=== PATIENT | female | born 1965 | race Caucasian/White ===

== ENCOUNTER 2017-10-24 10:55 | Outpatient (CLI) | payer OTHER ==
--- NOTE | 2017-10-24 12:31 | RAD ---
THREE VIEWS LEFT FOOT: Date: 10-24-17 History: Injured left foot six weeks ago with fracture. Open and nondisplaced fracture fifth metatars al. FINDINGS: There is a fracture involving the proximal aspect of the left fifth metatarsal. The fracture lucency persists and no significant callus formation is present. There is no displacement or angulation of th e fracture. No additional fracture is seen. There is no evidence of a dislocation. Lisfranc joint is normally aligned. Plantar calcaneal enthesophyte is seen. IMPRESSION: 1. Fracture of the proximal left fifth metatarsal. No significant callus formation is seen about the fracture to suggest significant interval healing. 2. No additional fracture or dislocation is seen involving the left foot. POS: [facility]
== END 2017-10-24 10:56 | disposition home or self-care (01) ==
LOC: SCSRAD 10:55
PROVIDERS: ATTEND Family Medicine
DX: S92.355D Nondisplaced fracture of fifth metatarsal bone, left foot, subsequent encounter for fracture with routine healing (principal)

== ENCOUNTER → 2018-01-17 | Day surgery (SDC) | payer OTHER ==
[2018-01-16 12:57] VITALS: BMI 34.4
[~2018-01-17] MED LIST: Bupivacaine PF 0.5% 30 ML VIAL ONE; Clindamycin/D5W 600 mg/50 ml Premix Bag ONE; Fentanyl 100 MCG/2 ML VIAL ONE; HYDROcodone/Acetaminophen 5/325 mg Tablet ONE; Midazolam HCl 2 mg/2 ml Vial ONE
[2018-01-17 07:24] LABS: Anion Gap 16 mmol/L (10-20); BUN (Urea Nitrogen) 20 mg/dL (7.0-18.7); Calc. Creatinine Clearance 118 mL/min (70-130); Calcium 10.3 mg/dL (7.8-10.44); Carbon Dioxide 28 mmol/L (22-29); Chloride 101 mmol/L (98-107); Estimated GFR-MDRD 74; Glucose 126 mg/dL (70-105); Sodium 141 mmol/L (136-145)
--- NOTE | 2018-01-17 11:27 | RAD ---
THREE INTRAOPERATIVE FLUOROSCOPIC IMAGES LEFT FOOT: Date: 01-17-18 History: Reduction of foot, fifth metatarsal screw fixation. Comparison: 10-24-17 FINDINGS: There is a single long screw transfixing the fracture involving the proximal left fifth metatarsal. N o hardware complication is seen. IMPRESSION: Internal fixation proximal left fifth metatarsal fracture. POS: [facility]
--- NOTE | 2018-01-17 11:34 | OP ---
DATE OF OPERATION: 01/17/2018 PREOPERATIVE DIAGNOSIS: Left fifth metatarsal fracture nonunion, Downs fracture. POSTOPERATIVE DIAGNOSIS: Left fifth metatarsal fracture nonunion, Downs fracture. OPERATION: Left fifth metatarsal bone grafting and screw fixation for nonunion. SURGEON: Mc Gale M.D. ANESTHESIA: General plus local. IMPLANTS: A single 4.5 mm malleolar screw from [employer] was used. ANESTHESIA: General. INDICATIONS: Ms. 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 She has failed conservative treatment. She has now been indicated for screw fixation to re store stability and compressed the fracture. I have also discussed bone grafting from her calcaneus to provide new biology to stimulate healing. She wants to proceed with the operation. She is aware of risks and benefits. DESCRIPTION OF PROCEDURE: Ms. Deluca was identified in the preoperative holding area. Her corre ct extremity was marked. She was carried to the operating room. She was positioned supine. General anesthesia was induced. A multidisciplinary timeout was performed. The left lower extremity was pr epped and draped in sterile fashion. She was given intravenous antibiotics. We began the procedure by harvesting calcaneal bone graft. We made an incision over the lateral calc aneus. We dissected down through the subcutaneous tissues to the bony cortex. We used a drill to en ter the cortex. We then used a curet to remove approximately 3 mL of cancellous bone. This was save d in a specimen cup. We thoroughly irrigated this wound and closed with a 2-0 Vicryl suture and nylo n. At this point, we moved to the fracture at the fifth metatarsal. We made a small incision directly o rosy the fracture site. We dissected down through the subcutaneous tissues again exposing the bony fisher rface. We entered the nonunion and fracture site. We used an osteotome to shingle the edges and sti mulate the adjacent bone to the nonunion. We cleared any fibrous tissue. At this point, we packed t he nonunion with cancellous bone from the calcaneus. Finally, we made a small incision proximal to the fifth metatarsal. We inserted a guidewire into the metatarsal using intraoperative x-ray to guide this in appropriate position. We then overdrilled th e guidewire. Finally, we placed a solid 4.5 malleolar screw in the intramedullary canal of the fifth metatarsal. This traversed the fracture site and allowed compression. Again, we took images and sa jania these. We thoroughly irrigated and closed all wounds. A sterile dressing was applied to the pat ient.
== END ==
LOC: SDC 06:03
PROVIDERS: ATTEND Orthopaedic Surgery
PROC: 0QUP07Z Supplement Left Metatarsal with Autologous Tissue Substitute, Open Approach (ICD-10-PCS; principal; 2018-01-17)
PROC: 0QBM0ZZ Excision of Left Tarsal, Open Approach (ICD-10-PCS; principal; 2018-01-17)
PROC: 0QSP04Z Reposition Left Metatarsal with Internal Fixation Device, Open Approach (ICD-10-PCS; principal; 2018-01-17)
DX: S92.352K Displaced fracture of fifth metatarsal bone, left foot, subsequent encounter for fracture with nonunion (principal); Z88.0 Allergy status to penicillin; Z79.84 Long term (current) use of oral hypoglycemic drugs; Z79.899 Other long term (current) drug therapy
CPT/HCPCS: 36415; 76001; 80048; 93005; 93010; 96374; C1713; C1769; J2250; J3010; J3490; S0020